=== PATIENT | male | born 1960 | race American Indian/Alaskan Native ===

== ENCOUNTER 2017-11-03 04:42 | Emergency (ER) | payer MEDICAID ==
[2017-11-03 05:23] VITALS: BP 131/76
--- NOTE | 2017-11-03 05:49 | XRay Report ---
FINAL REPORT EXAM: XR KNEE 1-2V LT HISTORY: left knee pain/swelling COMPARISONS: None. FINDINGS: AP and lateral views left knee Patella Huntington. Prepatellar soft tissue swelling. No definite joint effusion or acute fracture. Alignment is otherwise anatomic. Medial lateral left knee joint spaces are preserved. IMPRESSION: Patella Solange and marked prepatellar soft tissue swelling may be secondary to significant patellar tendinopathy and/or tendon rupture. Correlation with extensor mechanism functionality is requested. Consider follow-up MRI as warranted.
--- NOTE | 2017-11-03 07:48 | Emergency Department Report ---
ED Lower Extremity HPI - General Chief Complaint: Extremity Injury, Lower Stated Complaint: LT KNEE SWELLING/PAIN Time Seen by Provider: 11/03/17 07:47 Source: patient Mode of arrival: Ambulatory Limitations: Language Barrier - History of Present Illness Initial Comments: 57-year-old male past medical history none presents with complaint of left knee pain status post mechanical fall 2 days ago. Patient states he tripped over a box while moving things at home and fell directly onto his left knee. Has been limping and experiencing pain with full knee extension since. Denies any skin changes fevers chills denies trauma to any other body part. Patient is awake alert and oriented 3. Antalgic gait secondary to pain. MD Complaint: knee injury Onset/Timin -: days(s) Injury: Knee: Left Type of Injury: blunt Place: home Severity: moderate Severity scale (0 -10): 6 Improves With: cold therapy, immobilization Worsens With: weight bearing, movement, palpation Context: fall, direct blow Associated Symptoms: swelling, able to partially bear weight - Related Data Previous Rx's Medication Instructions Recorded Last Taken Type Acetaminophen/Codeine 1 tab PO Q6H PRN #16 tab 06/01/14 Unknown Rx [Acetaminophen-Codeine #3 TAB] Ibuprofen [Motrin 800 MG tab] 800 mg PO Q8H #30 tablet 06/01/14 Unknown Rx HYDROcodone/APAP 5-325 [[place] 1 each PO Q4HR PRN #10 tablet 11/03/17 Unknown Rx 5/325] Ibuprofen [Motrin] 800 mg PO Q8HR PRN #20 tablet 11/03/17 Unknown Rx Allergies Allergy/AdvReac Type Severity Reaction Status Date / Time No Known Allergies Allergy Unverified 06/01/14 18:04 ED Review of Systems ROS: Stated complaint: LT KNEE SWELLING/PAIN Other details as noted in HPI Constitutional: denies: chills, fever Eyes: denies: eye pain, eye discharge, vision change ENT: denies: ear pain, throat pain Respiratory: denies: cough, shortness of breath, wheezing Cardiovascular: denies: chest pain, palpitations Endocrine: no symptoms reported Gastrointestinal: denies: abdominal pain, nausea, diarrhea Genitourinary: denies: urgency, dysuria Musculoskeletal: as per HPI (left knee pain for 2 days), arthralgia. denies: back pain, joint swelling Skin: denies: rash, lesions Neurological: denies: headache, weakness, paresthesias Psychiatric: denies: anxiety, depression Hematological/Lymphatic: denies: easy bleeding, easy bruising ED Past Medical Hx - Past Medical History Previous Medical History?: No Additional medical history: Left knee pain - Surgical History Past Surgical History?: No - Social History Smoking Status: Former Smoker Substance Use Type: None - Medications Home Medications: Home Medications Medication Instructions Recorded Confirmed Last Taken Type Acetaminophen/Codeine 1 tab PO Q6H PRN #16 tab 06/01/14 Unknown Rx [Acetaminophen-Codeine #3 TAB] Ibuprofen [Motrin 800 MG tab] 800 mg PO Q8H #30 tablet 06/01/14 Unknown Rx HYDROcodone/APAP 5-325 [[place] 1 each PO Q4HR PRN #10 tablet 11/03/17 Unknown Rx 5/325] Ibuprofen [Motrin] 800 mg PO Q8HR PRN #20 tablet 11/03/17 Unknown Rx ED Physical Exam - General Limitations: Language Barrier General appearance: alert, in no apparent distress - Head Head exam: Present: atraumatic, normocephalic - Eye Eye exam: Present: normal appearance, PERRL, EOMI - ENT ENT exam: Present: mucous membranes moist - Neck Neck exam: Present: normal inspection - Respiratory Respiratory exam: Present: normal lung sounds bilaterally. Absent: respiratory distress - Cardiovascular Cardiovascular Exam: Present: regular rate, normal rhythm. Absent: systolic murmur, diastolic murmur, rubs, gallop - GI/Abdominal GI/Abdominal exam: Present: soft, normal bowel sounds - Rectal Rectal exam: Present: deferred - Extremities Exam Extremities exam: Present: normal inspection - Expanded Lower Extremity Exam Left Upper Leg exam: Present: normal inspection, full ROM Knee exam: Present: normal inspection, full ROM (patient can flex and extend his left knee but has difficulty with full knee extension), swelling (some anterior patellar region swelling) Lower Leg exam: Present: normal inspection, full ROM Ankle exam: Present: normal inspection, full ROM Foot/Toe exam: Present: normal inspection, full ROM Neuro vascular tendon exam: Present: no vascular compromise (distal dorsalis pedis and posterior tibial pulses strong to palpation) Gait: Positive: antalgic 1 - Pain here on palpation - Back Exam Back exam: Present: normal inspection - Neurological Exam Neurological exam: Present: alert, oriented X3, CN II-XII intact, normal gait - Psychiatric Psychiatric exam: Present: normal affect, normal mood - Skin Skin exam: Present: warm, dry, intact, normal color. Absent: rash ED Course Vital Signs 11/03/17 05:15 Temperature 98.3 F Pulse Rate 95 H Respiratory 20 Rate Blood Pressure 131/76 O2 Sat by Pulse 99 Oximetry ED Lower Extremity MDM - Medical Decision Making A/P: Left knee pain, patellar tendon injury 1-Motrin when necessary, Iuka when necessary 2-emphasized the importance of follow-up with orthopedics to the patient and provided him with multiple referrals 3-crutches and left knee immobilizer provided to the patient, nonweightbearing for now, RICE therapy. Left lower extremity neurovascular exam is intact 4- Critical care attestation.: If time is entered above; I have spent that time in minutes in the direct care of this critically ill patient, excluding procedure time. ED Disposition Clinical Impression: Left knee pain Qualifiers: Chronicity: acute Qualified Code(s): M25.562 - Pain in left knee Patellar tendon rupture Qualifiers: Encounter type: initial encounter Laterality: left Qualified Code(s): S86.812A - Strain of other muscle(s) and tendon(s) at lower leg level, left leg, initial encounter Disposition: TO HOME OR SELFCARE Is pt being admited?: No Does the pt Need Aspirin: No Condition: Stable Instructions: Patella Tendon Repair (GEN), Knee Pain (ED), Knee Immobilizer (ED ), Crutch Instructions (ED) Prescriptions: HYDROcodone/APAP 5-325 [[place]uka 5/325] 1 each PO Q4HR PRN #10 tablet PRN Reason: Pain Ibuprofen [Motrin] 800 mg PO Q8HR PRN #20 tablet PRN Reason: Pain Referrals: CYNTHIA HARDWICK MD [Staff Physician] - 3-5 Days [facility] [Provider Group] - 3-5 Days Forms: Work/School Release Form(ED) Time of Disposition: 08:07
[2017-11-03] MEDS ORDERED: MOTRIN PO ONE (08:02)
== END 2017-11-03 08:16 | disposition home or self-care (01) ==
LOC: ED 04:42
DX: S86.812A Strain of other muscle(s) and tendon(s) at lower leg level, left leg, initial encounter (principal); Z87.891 Personal history of nicotine dependence; W01.198A Fall on same level from slipping, tripping and stumbling with subsequent striking against other object, initial encounter; Y93.89 Activity, other specified; Y99.8 Other external cause status; Y92.009 Unspecified place in unspecified non-institutional (private) residence as the place of occurrence of the external cause

== ENCOUNTER 2020-06-11 17:49 | Emergency (ER) | payer MEDICAID ==
[2020-06-11] MEDS ORDERED: ONDANSETRON 4 MG ODT TAB PO ONE (18:29)
[2020-06-11] MEDS ORDERED: ACETAMINOPHEN 325 MG TAB PO ONE (18:30)
--- NOTE | 2020-06-12 04:34 | Emergency Department Report ---
<SAM CHILDERS MARIE - Last Filed: 06/12/20 10:46> ED General Adult HPI - General Chief complaint: Nausea/Vomiting/Diarrhea Stated complaint: FEVER Time Seen by Provider: 06/12/20 04:22 - Related Data Previous Rx's Medication Instructions Recorded Last Taken Type Acetaminophen/Codeine 1 tab PO Q6H PRN #16 tab 06/01/14 Unknown Rx [Acetaminophen-Codeine #3 TAB] Ibuprofen [Motrin 800 MG tab] 800 mg PO Q8H #30 tablet 06/01/14 Unknown Rx HYDROcodone/APAP 5-325 [[place] 1 each PO Q4HR PRN #10 tablet 11/03/17 Unknown Rx 5/325] Ibuprofen [Motrin] 800 mg PO Q8HR PRN #20 tablet 11/03/17 Unknown Rx Azithromycin [Zithromax Z-NEHAL] 0 mg PO DAILY #1 pack 06/12/20 Unknown Rx cephALEXin [Keflex] 500 mg PO Q12HR #14 cap 06/12/20 Unknown Rx Allergies Allergy/AdvReac Type Severity Reaction Status Date / Time No Known Allergies Allergy Unverified 06/01/14 18:04 ED Past Medical Hx - Medications Home Medications: Home Medications Medication Instructions Recorded Confirmed Last Taken Type Acetaminophen/Codeine 1 tab PO Q6H PRN #16 tab 06/01/14 Unknown Rx [Acetaminophen-Codeine #3 TAB] Ibuprofen [Motrin 800 MG tab] 800 mg PO Q8H #30 tablet 06/01/14 Unknown Rx HYDROcodone/APAP 5-325 [[place] 1 each PO Q4HR PRN #10 tablet 11/03/17 Unknown Rx 5/325] Ibuprofen [Motrin] 800 mg PO Q8HR PRN #20 tablet 11/03/17 Unknown Rx Azithromycin [Zithromax Z-NEHAL] 0 mg PO DAILY #1 pack 06/12/20 Unknown Rx cephALEXin [Keflex] 500 mg PO Q12HR #14 cap 06/12/20 Unknown Rx ED Medical Decision Making - Lab Data Result diagrams: 06/12/20 04:49 06/12/20 04:49 Critical Care Time: No ED Disposition Clinical Impression: Urinary tract infection with pyuria Pneumonia Qualifiers: Pneumonia type: due to unspecified organism Laterality: bilateral Lung location: lower lobe of lung Qualified Code(s): J18.9 - Pneumonia, unspecified organism Disposition: DC-01 TO HOME OR SELFCARE Is pt being admited?: No Does the pt Need Aspirin: No Condition: Stable Instructions: Urinary Tract Infection, Adult, Bacterial Pneumonia (ED) Additional Instructions: Please get a COVID-19 test. Refer to the pamphlet with different locations that you may have testing done. Follow-up with your primary care doctor in 2 to 3 days or you may follow-up with Dr. Rivas in 2 to 3 days if you develop shortness of breath chest pain difficulty breathing worsening symptoms please return to the emergency room. Rest increase your oral intake drinking at least 6 to 8 glasses a day take Tylenol 2 tabs every 4-6 hours for fever 101 or greater. You should self quarantine for the next 2 weeks wear mask as recommended. Also have your close contacts consider COVID-19 testing. Take antibiotic as prescribed finished it all Prescriptions: cephALEXin [Keflex] 500 mg PO Q12HR #14 cap Azithromycin [Zithromax Z-NEHAL] 0 mg PO DAILY #1 pack Referrals: PRIMARY CARE, [Primary Care Provider] - 3-5 Days Time of Disposition: 10:51 <JAYSHREE GALLARDO - Last Filed: 06/15/20 01:34> ED General Adult HPI - General Source: patient Mode of arrival: Ambulatory Limitations: No Limitations - History of Present Illness Initial comments: Patient is a 60-year-old male presents emergency room complaints of nausea vomiting that began 2 days ago. He has associated mild dry cough, mild shortness of breath, left flank pain, fever. He states he had a normal bowel movement today. He denies any dysuria, hematuria, chest pain, abdominal pain, hematemesis, hematochezia, melena, diarrhea. He denies any past medical history. No allergies to medications. He denies any known sick contacts. He denies any recent travel. He states he is a non-smoker. Severity scale (0 -10): 0 ED Review of Systems ROS: Stated complaint: FEVER Other details as noted in HPI Comment: All other systems reviewed and negative ED Past Medical Hx - Past Medical History Previous Medical History?: No Additional medical history: Left knee pain - Surgical History Past Surgical History?: No - Social History Smoking Status: Former Smoker Substance Use Type: None ED Physical Exam - General Limitations: No Limitations General appearance: alert, in no apparent distress - Head Head exam: Present: atraumatic, normocephalic - Eye Eye exam: Present: normal appearance - ENT ENT exam: Present: mucous membranes moist - Respiratory Respiratory exam: Present: normal lung sounds bilaterally. Absent: respiratory distress, wheezes, rales, rhonchi, stridor, chest wall tenderness, accessory muscle use, decreased breath sounds, prolonged expiratory - Cardiovascular Cardiovascular Exam: Present: regular rate, normal rhythm, normal heart sounds. Absent: systolic murmur, diastolic murmur, rubs, gallop - GI/Abdominal GI/Abdominal exam: Present: soft, normal bowel sounds. Absent: distended, tenderness, guarding, rebound, rigid - Back Exam Back exam: Absent: CVA tenderness (R), CVA tenderness (L) - Neurological Exam Neurological exam: Present: alert, oriented X3 - Psychiatric Psychiatric exam: Present: normal affect, normal mood - Skin Skin exam: Present: warm, dry, intact ED Course Vital Signs 06/11/20 06/12/20 06/12/20 18:27 04:14 11:04 Temperature 101.6 F H 98.2 F 98.3 F Pulse Rate 78 55 L 63 Respiratory 20 16 17 Rate Blood Pressure 109/69 119/70 Blood Pressure 118/74 [Right] O2 Sat by Pulse 95 99 99 Oximetry ED Medical Decision Making - Lab Data Result diagrams: 06/12/20 04:49 06/12/20 04:49 Lab Results 06/12/20 06/12/20 06/12/20 Range/Units 04:10 04:49 04:49 WBC 6.8 (4.5-11.0) K/mm3 RBC 4.73 (3.65-5.03) M/mm3 Hgb 13.6 (11.8-15.2) gm/dl Hct 39.6 (35.5-45.6) % MCV 84 (84-94) fl MCH 29 (28-32) pg MCHC 34 (32-34) % RDW 13.9 (13.2-15.2) % Plt Count 203 (140-440) K/mm3 Lymph % (Auto) 18.7 (13.4-35.0) % [place] % (Auto) 8.7 H (0.0-7.3) % Eos % (Auto) 1.2 (0.0-4.3) % Baso % (Auto) 0.2 (0.0-1.8) % Lymph # (Auto) 1.3 (1.2-5.4) K/mm3 [place] # (Auto) 0.6 (0.0-0.8) K/mm3 Eos # (Auto) 0.1 (0.0-0.4) K/mm3 Baso # (Auto) 0.0 (0.0-0.1) K/mm3 Seg Neutrophils % 71.2 H (40.0-70.0) % Seg Neutrophils # 4.9 (1.8-7.7) K/mm3 Sodium 134 L (137-145) mmol/L Potassium 4.1 (3.6-5.0) mmol/L Chloride 98.0 (98-107) mmol/L Carbon Dioxide 20 L (22-30) mmol/L Anion Gap 20 mmol/L BUN 20 (9-20) mg/dL Creatinine 1.1 (0.8-1.3) mg/dL Estimated GFR > 60 ml/min BUN/Creatinine Ratio 18 % Glucose 99 (75-100) mg/dL Calcium 9.2 (8.4-10.2) mg/dL Total Bilirubin 1.00 (0.1-1.2) mg/dL AST 39 (5-40) units/L ALT 37 (7-56) units/L Alkaline Phosphatase 34 L (35-129) units/L Total Protein 8.3 H (6.3-8.2) g/dL Albumin 3.8 L (3.9-5) g/dL Albumin/Globulin Ratio 0.8 % Lipase 109 H (13-60) units/L Urine Color [place] (Yellow) Urine Turbidity Clear (Clear) Urine pH 5.0 (5.0-7.0) Ur Specific [place] 1.027 (1.003-1.030) Urine Protein 100 mg/dl (Negative) mg/dL Urine Glucose (UA) Neg (Negative) mg/dL Urine Ketones Neg (Negative) mg/dL Urine Blood Neg (Negative) Urine Nitrite Neg (Negative) Urine Bilirubin Neg (Negative) Urine Urobilinogen 4.0 (<2.0) mg/dL Ur Leukocyte Esterase Tr (Negative) Urine WBC (Auto) 42.0 H (0.0-6.0) /HPF Urine RBC (Auto) 6.0 (0.0-6.0) /HPF U Epithel Cells (Auto) 2.0 (0-13.0) /HPF Urine Bacteria (Auto) 1+ (Negative) /HPF Urine Mucus 3+ /HPF Vital Signs 06/11/20 06/12/20 06/12/20 18:27 04:14 11:04 Temperature 101.6 F H 98.2 F 98.3 F Pulse Rate 78 55 L 63 Respiratory 20 16 17 Rate Blood Pressure 109/69 119/70 Blood Pressure 118/74 [Right] O2 Sat by Pulse 95 99 99 Oximetry - Radiology Data Radiology results: report reviewed CHEST 2 VIEWS INDICATION: cough, fever. COMPARISON: None FINDINGS: SUPPORT DEVICES: None. HEART: Within normal limits. LUNGS/PLEURA: Mild patchy multifocal airspace disease. No effusion. No pneumothorax. ADDITIONAL FINDINGS: None. IMPRESSION: 1. Pulmonary findings as above. Signer Name: Néstor Whitaker MD Signed: 06/12/2020 4:19 AM Workstation Name: [id number] - Medical Decision Making Patient is a 60-year-old male presents emergency room complaints of nausea vomiting that began 2 days ago. He has associated mild dry cough, mild shortness of breath, left flank pain, fever. He states he had a normal bowel movement today. He denies any dysuria, hematuria, chest pain, abdominal pain, hematemesis, hematochezia, melena, diarrhea. He denies any past medical history. No allergies to medications. He denies any known sick contacts. He denies any recent travel. He states he is a non-smoker. Initial vitals with fever which improved to normal upon Tylenol administration. Patient given ODT Zofran and was able to tolerate p.o. intake without difficulty. No abnormality on physical examination as documented in chart. Labs are stable. Chest x-ray: 1. Pulmonary findings as above. UA shows evidence of UTI, given 1 g of ceftriaxone while in the ED signed out to Sam Childers NP pending CT abd pelvis without contrast Patient was diagnosed with pneumonia and UTI On repeat vitals are normal Given prescription for Keflex and azithromycin Please get a COVID-19 test. Refer to the pamphlet with different locations that you may have testing done. Follow-up with your primary care doctor in 2 to 3 days or you may follow-up with Dr. Rivas in 2 to 3 days if you develop shortness of breath chest pain difficulty breathing worsening symptoms please return to the emergency room. Rest increase your oral intake drinking at least 6 to 8 glasses a day take Tylenol 2 tabs every 4-6 hours for fever 101 or greater. You should self quarantine for the next 2 weeks wear mask as recommended. Also have your close contacts consider COVID-19 testing. Take antibiotic as prescribed finished it all Critical care attestation.: If time is entered above; I have spent that time in minutes in the direct care of this critically ill patient, excluding procedure time. ED Disposition Is pt being admited?: No Does the pt Need Aspirin: No
--- NOTE | 2020-06-12 05:24 | XRay Report ---
CHEST 2 VIEWS INDICATION: cough, fever. COMPARISON: None FINDINGS: SUPPORT DEVICES: None. HEART: Within normal limits. LUNGS/PLEURA: Mild patchy multifocal airspace disease. No effusion. No pneumothorax. ADDITIONAL FINDINGS: None. IMPRESSION: 1. Pulmonary findings as above. Signer Name: Néstor Whitaker MD Signed: 06/12/2020 5:19 AM Workstation Name: [id number]
[2020-06-12 05:44] LABS: Basophils % (Auto) 0.2 % (0.0-1.8); Eosinophils # (Auto) 0.1 K/mm3 (0.0-0.4); Eosinophils % (Auto) 1.2 % (0.0-4.3); Hematocrit 39.6 % (35.5-45.6); Hemoglobin 13.6 gm/dl (11.8-15.2); Lymphocytes # (Auto) 1.3 K/mm3 (1.2-5.4); Lymphocytes % (Auto) 18.7 % (13.4-35.0); Mean Corpuscular HGB Conc 34 % (32-34); Mean Corpuscular Volume 84 fl (84-94); Monocytes # (Auto) 0.6 K/mm3 (0.0-0.8); Monocytes % (Auto) 8.7 % (0.0-7.3); Red Blood Count 4.73 M/mm3 (3.65-5.03); Red Cell Distribution Width 13.9 % (13.2-15.2)
[2020-06-12 05:56] LABS: Platelet Count 203 K/mm3 (140-440)
[2020-06-12 06:06] LABS: Alanine Aminotransferase 37 units/L (7-56); Albumin 3.8 g/dL (3.9-5); BUN/Creatinine Ratio 18; Blood Urea Nitrogen 20 mg/dL (9-20); Calcium 9.2 mg/dL (8.4-10.2); Hemolysis Index 6
[2020-06-12 06:50] LABS: Bacteria,Urine 1+ /HPF (Negative); Bilirubin,Urine NEG (Negative); Blood,Urine NEG (Negative); Color,Urine Amber (Yellow); Mucus,Urine 3+ /HPF
[2020-06-12] MEDS ORDERED: LIDOCAINE-MPF (1%) 10 MG/1 ML VIAL 5 ML INFILTRATI ONE (07:08)
--- NOTE | 2020-06-12 08:51 | Cat Scan Report ---
CT abdomen pelvis wo con INDICATION: left flank pain, n/v. TECHNIQUE: All CT scans at this location are performed using the following dose modulation technique: Automated exposure control. Helical slices were obtained through the abdomen and pelvis. COMPARISON: None available. FINDINGS: ABDOMEN: There are patchy groundglass opacities noted in the lung bases. The liver, spleen, pancreas, adrenal glands, and kidneys show no acute abnormality. The aorta is normal in diameter. There is no obstructi on, inflammation, or free air. The appendix is unremarkable. Pelvis: There is no obstruction or inflammation. There are no abnormal fluid collections. On review of bone windows, no acute osseous abnormalities are seen. IMPRESSION: 1. There are groundglass opacities in the lung bases. The appearance is concerning for an atypical or viral pneumonia. 2. No acute abnormality is seen in the abdomen or pelvis. Signer Name: Elian Redding MD Signed: 06/12/2020 8:46 AM Workstation Name: [id number]
[2020-06-12 11:05] VITALS: BP 118/74
== END 2020-06-12 11:05 | disposition home or self-care (01) ==
LOC: ED 17:49
DX: N39.0 Urinary tract infection, site not specified (principal); J18.9 Pneumonia, unspecified organism
CPT/HCPCS: 36415; 71046; 74176; 80053; 81001; 83690; 85025; 87086; 96372; 99284; J0696; Q0162